=== PATIENT | female | born 1955 | race African-American/Black ===

== ENCOUNTER 2017-12-11 12:56 | Emergency (ER) | payer MEDICARE, MEDICAID ==
[~2017-12-11] VITALS: Ht 172.7 cm; Wt 155.0 kg
[2017-12-11 13:22] LABS: GLUCOSE,POINT OF CARE 161 MG/DL (70-110)
[2017-12-11] MEDS ORDERED: BUME1TAB17 PO (13:28)
[2017-12-11] MEDS ORDERED: INSLAN SQ ×2 (13:28)
[2017-12-11] MEDS ORDERED: CARV6 PO (13:28)
[2017-12-11] MEDS ORDERED: ATOR20TA86 PO (13:28)
[2017-12-11] MEDS ORDERED: VALS40TA4 PO (13:28)
[2017-12-11] MEDS ORDERED: AMLO-512 PO (13:28)
[2017-12-11] MEDS ORDERED: INSNOV SQ (13:28)
[2017-12-11] MEDS ORDERED: ASPI-556 PO (13:28)
[2017-12-11] MEDS ORDERED: HYDR25TA84 PO (13:28)
[2017-12-11 16:12] LABS: HEMATOCRIT 30.9 % (36-46); HEMOGLOBIN 9.6 g/dL (12.0-16.0); MEAN CORPUSCULAR HEMOGLOBIN 23.4 pg (26.0-34.0); MEAN CORPUSCULAR VOLUME 75 fL (80-100); PLATELET COUNT (AUTO) 296 K/uL (150-450); RED CELL DISTRIBUTION WIDTH 23.2 % (11.5-14.5)
[2017-12-11 16:25] LABS: INR 1.2 (0.9-1.1); PROTHROMBIN TIME 12.4 SEC (9.4-11.6)
[2017-12-11 16:30] LABS: ANION GAP 4 mmol/L (8-16); CALCIUM, TOTAL 8.1 mg/dL (8.8-10.5); CARBON DIOXIDE 35 mmol/L (22-29); CHLORIDE 101 mmol/L (98-107); CREATININE 1.02 mg/dL (0.60-1.30); GLOMERULAR FILTR. RATE CALC > 60 mL/min (>60); GLUCOSE,RANDOM 156 mg/dL (70-110); POTASSIUM 3.8 mmol/L (3.5-5.1); SODIUM SERUM 140 mmol/L (136-145); UREA NITROGEN, BLOOD 24 mg/dL (7-18)
[2017-12-11 16:54] LABS: ALANINE AMINOTRANSFERASE 47 U/L (12-78); ALBUMIN 2.2 g/dL (3.4-5.0); ALKALINE PHOSPHATASE 656 U/L (46-116); ASPARTATE AMINOTRANSFERASE 41 U/L (15-37); BILIRUBIN,TOTAL 0.8 mg/dL (0.1-1.0); CREATINE KINASE, TOTAL 106 U/L (26-192); TOTAL PROTEIN, SERUM 6.9 g/dL (6.4-8.2)
[2017-12-11 16:55] LABS: CREATINE KINASE MB < 0.5 ng/mL (0-5)
[2017-12-11 16:56] LABS: BAND NEUTROPHILS % (MANUAL) 5 % (1-5); LYMPHOCYTES % (MANUAL) 32 % (22-44); MONOCYTES % (MANUAL) 2 % (2-9); SEGMENTED NEUTROPHILS % 61 % (40-70)
[2017-12-11 16:58] LABS: B-TYPE NATRIURETIC PEPTIDE 631 pg/mL (0-100)
[2017-12-11 17:12] LABS: APPEARANCE,URINE CLEAR (CLEAR); GLUCOSE, URINE (UA) NEGATIVE (NEGATIVE); KETONES,URINE NEGATIVE (NEGATIVE); LEUKOCYTE ESTERASE ,URINE NEGATIVE (NEGATIVE); NITRATE,URINE NEGATIVE (NEGATIVE); OCCULT BLOOD,URINE NEGATIVE (NEGATIVE); PH,URINE 5.5 (5.0-8.0); PROTEIN,URINE SEE CONFIRM (NEGATIVE)
[2017-12-11 17:13] LABS: BILIRUBIN,URINE PRELIM. POSITIVE (NEGATIVE)
[2017-12-11 17:31] LABS: SULFOSALICYLIC ACID,URINE 2+ (Negative)
[2017-12-11 17:32] LABS: BACTERIA,URINE None Seen /HPF (None Seen); RBC,URINE None Seen /HPF (0-2); WBC,URINE None Seen /HPF (0-5); YEAST,URINE Few /HPF (None Seen)
[2017-12-11 18:15] VITALS: BP 145/53
[2017-12-11] MEDS ORDERED: FUROSEMIDE 40 MG/4 ML VIAL IVP ONE (18:45)
== END 2017-12-11 19:15 | disposition home or self-care (01) ==
LOC: EMS 12:58
DX: S81.801A Unspecified open wound, right lower leg, initial encounter (principal); I11.0 Hypertensive heart disease with heart failure; I50.9 Heart failure, unspecified; J44.9 Chronic obstructive pulmonary disease, unspecified; D50.9 Iron deficiency anemia, unspecified; E66.01 Morbid (severe) obesity due to excess calories; E11.9 Type 2 diabetes mellitus without complications; Z85.3 Personal history of malignant neoplasm of breast; Z88.2 Allergy status to sulfonamides; Z88.5 Allergy status to narcotic agent; Z88.8 Allergy status to other drugs, medicaments and biological substances; Z79.82 Long term (current) use of aspirin; Z79.4 Long term (current) use of insulin; Z68.43 Body mass index [BMI] 50.0-59.9, adult; X58.XXXA Exposure to other specified factors, initial encounter; Y93.89 Activity, other specified; Y92.89 Other specified places as the place of occurrence of the external cause; Y99.8 Other external cause status
CPT/HCPCS: 36415; 70450; 71045; 80053; 81001; 82550; 82553; 82962; 83880; 84484; 85025; 85610; 85730; 93005; 96374; 99285; J1940

== ENCOUNTER 2017-12-24 17:37 | Inpatient (IN) | payer MEDICARE, MEDICAID ==
[~2017-12-24] VITALS: Ht 160 cm; Wt 89.7 kg
[~2017-12-24 17:37] MED LIST: AMLO-512 PO; ASPI-556 PO; ATOR20TA86 PO; BUME1TAB17 PO; CARV6 PO; HYDR25TA84 PO; INSLAN SQ; INSNOV SQ; VALS40TA4 PO
[2017-12-24] MEDS ORDERED: ASPI-891 PO (17:53)
[2017-12-24 18:03] LABS: GLUCOSE,POINT OF CARE 153 MG/DL (70-110)
[2017-12-24] MEDS ORDERED: BUMETANIDE 0.25 MG/ML 4 ML VIAL IVP ONE (18:15)
[2017-12-24 18:43] LABS: BASOPHILS % (AUTO) 0.8 % (0.0-2.0); EOSINOPHILS % (AUTO) 4.5 % (1.0-6.0); HEMATOCRIT 32.6 % (36-46); LYMPHOCYTES # (AUTO) 1.1 K/uL (1.0-4.8); LYMPHOCYTES % (AUTO) 14.8 % (22.0-44.0); MEAN CORPUSCULAR HEMOGLOBIN 22.6 pg (26.0-34.0); MEAN CORPUSCULAR HGB CONC 30.5 G/dL (31.0-37.0); MEAN CORPUSCULAR VOLUME 74 fL (80-100); MONOCYTES # (AUTO) 0.7 K/uL (0.1-1.0); NEUTROPHILS % (AUTO) 69.9 % (40.0-70.0); PLATELET COUNT (AUTO) 327 K/uL (150-450); RED CELL DISTRIBUTION WIDTH 23.8 % (11.5-14.5)
[2017-12-24 18:57] LABS: ALBUMIN 2.3 g/dL (3.4-5.0); CALCIUM, TOTAL 8.6 mg/dL (8.8-10.5); CHLORIDE 99 mmol/L (98-107); CREATININE 0.95 mg/dL (0.60-1.30); GLOMERULAR FILTR. RATE CALC > 60 mL/min (>60); GLUCOSE,RANDOM 146 mg/dL (70-110); POTASSIUM 4.1 mmol/L (3.5-5.1); SODIUM SERUM 139 mmol/L (136-145); UREA NITROGEN, BLOOD 23 mg/dL (7-18)
[2017-12-24 19:00] LABS: B-TYPE NATRIURETIC PEPTIDE 914 pg/mL (0-100)
[2017-12-24 19:10] LABS: INR 1.2 (0.9-1.1); PROTHROMBIN TIME 12.5 SEC (9.4-11.6)
[2017-12-24 19:13] LABS: PLATELET MORPHOLOGY COMMENT LARGE PLTS PRESENT
[2017-12-24 19:17] LABS: ALANINE AMINOTRANSFERASE 40 U/L (12-78); ALKALINE PHOSPHATASE 653 U/L (46-116); ASPARTATE AMINOTRANSFERASE 31 U/L (15-37); BILIRUBIN,TOTAL 1.1 mg/dL (0.1-1.0); CREATINE KINASE, TOTAL 98 U/L (26-192); TOTAL PROTEIN, SERUM 7.2 g/dL (6.4-8.2)
[2017-12-24 19:18] LABS: ANION GAP -2 mmol/L (8-16); CARBON DIOXIDE 42 mmol/L (22-29)
[2017-12-24 19:19] LABS: CREATINE KINASE MB 0.6 ng/mL (0-5)
[2017-12-24] MEDS ORDERED: MethylPREDNISolone SOD SUCC 125 MG/2 ML VIAL IVP ONE (19:30)
[2017-12-24 19:34] LABS: ABG A-A DIFF O2 485.2 mmHg (10-20.0); ABG BASE EXCESS 14.7 mmol/L (-2.0-3.0); ABG CARBOXYHEMOGLOBIN 1.5 % (0.0-1.5); ABG HCO3 35.8 mmol/L (22.0-26.0); ABG METHEMOGLOBIN 0.2 % (0.0-1.5); ABG OXYGEN CONTENT 15.1 mL/dL (15.0-23.0); ABG OXYGEN SATURATION 99.1 % (95.0-98.0); ABG OXYHEMOGLOBIN 97.4 % (94.0-100.0); ABG PH 7.323 (7.35-7.450); ABG TOTAL HEMOGLOBIN 10.8 G/dL (12.0-18.0); PO2, ARTERIAL BG 147.5 mmHg (79.0-87.0); SOURCE, BLOOD GAS ARTERIAL; TEMPERATURE, FAHRENHEIT, BG 98.6 FAHREN (96.0-98.6)
[2017-12-24 19:35] LABS: ABG PCO2 80 mmHg (35-45); O2 DEVICE,BLOOD GAS NON REBREATHER (ROOM AIR); SITE, BLOOD GAS RT RADIAL
[2017-12-24] MEDS ORDERED: 0.9% SODIUM CHLORIDE 10 ML SYRINGE IVP PRN (19:45)
[2017-12-24] MEDS ORDERED: ONDANSETRON HCL 4 MG/2 ML VIAL IVP PRN ×2 (19:45→20:30)
[2017-12-24] MEDS ORDERED: ACETAMINOPHEN 325 MG TABLET PO PRN (19:45)
[2017-12-24] MEDS ORDERED: IPRATROPIUM BROMIDE 0.5 MG/2.5 ML NEB SOLUTION NEB SCH (20:00)
[2017-12-24] MEDS ORDERED: ALBUTEROL SULFATE 2.5 MG/0.5 ML NEB SOLUTION NEB SCH (20:00)
[2017-12-24] MEDS ORDERED: POTASSIUM CHLORIDE 20 MEQ ER TABLET PO PRN (20:30)
[2017-12-24] MEDS ORDERED: IPRATROPIUM BROMIDE 0.5 MG/2.5 ML NEB SOLUTION NEB PRN (20:30)
[2017-12-24] MEDS ORDERED: MAGNESIUM OXIDE 400 MG TABLET PO PRN (20:30)
[2017-12-24] MEDS ORDERED: BISACODYL 10 MG RECTAL RECTAL SUPPOSITORY PR PRN (20:30)
[2017-12-24] MEDS ORDERED: MAGNESIUM SULFATE 4 GM/WATER 100 ML IV PRN (20:30)
[2017-12-24] MEDS ORDERED: POTASSIUM CHL 10 MEQ/WATER 50 ML IV PRN (20:30)
[2017-12-24] MEDS ORDERED: MAGNESIUM SULFATE 2 GM in DEXTROSE 5%-WATER 50 ML IV PRN (20:30)
[2017-12-24] MEDS ORDERED: ALBUTEROL SULFATE 2.5 MG/0.5 ML NEB SOLUTION NEB PRN (20:30)
[2017-12-24] MEDS ORDERED: DEXTROSE 50%-WATER 25 GM/50 ML SYRINGE IVP PRN (20:30)
[2017-12-24] MEDS ORDERED: 0.9% SODIUM CHLORIDE 5 ML NEB SOLUTION NEB ONE (20:55)
[2017-12-24 21:23] LABS: GLUCOSE,POINT OF CARE 135 MG/DL (70-110)
[2017-12-24 21:35] LABS: ABG A-A DIFF O2 185.7 mmHg (10-20.0); ABG BASE EXCESS 16.1 mmol/L (-2.0-3.0); ABG CARBOXYHEMOGLOBIN 1.9 % (0.0-1.5); ABG HCO3 37.3 mmol/L (22.0-26.0); ABG METHEMOGLOBIN 0.3 % (0.0-1.5); ABG OXYGEN CONTENT 14.5 mL/dL (15.0-23.0); ABG OXYGEN SATURATION 96.7 % (95.0-98.0); ABG OXYHEMOGLOBIN 94.6 % (94.0-100.0); ABG PH 7.375 (7.35-7.450); ABG TOTAL HEMOGLOBIN 10.8 G/dL (12.0-18.0); PO2, ARTERIAL BG 89.5 mmHg (79.0-87.0); SOURCE, BLOOD GAS ARTERIAL; TEMPERATURE, FAHRENHEIT, BG 98.6 FAHREN (96.0-98.6)
[2017-12-24 21:36] LABS: ABG PCO2 72 mmHg (35-45); O2 DEVICE,BLOOD GAS BIPAP (ROOM AIR); SITE, BLOOD GAS LFT RADIAL
[2017-12-24 22:19] VITALS: BP 192/94
[2017-12-24] MEDS: HydrALAZINE HCL 25 MG TABLET PO SCH (22:19)
[2017-12-24] MEDS: CARVEDILOL 6.25 MG TABLET PO SCH (22:19)
[2017-12-24] MEDS: HEPARIN SODIUM,PORCINE 5,000 UNITS/ML VIAL SQ SCH (22:20)
[2017-12-24] MEDS: INSULIN DETEMIR 100 UNITS/ML SQ SCH (22:24)
[2017-12-24] MEDS: BUMETANIDE 1 MG TABLET PO SCH (22:31)
[2017-12-25 00:06] VITALS: BP 161/78
[2017-12-25 04:25] VITALS: BP 141/83
[2017-12-25 06:44] LABS: BASOPHILS % (AUTO) 0.2 % (0.0-2.0); EOSINOPHILS % (AUTO) 0.1 % (1.0-6.0); HEMATOCRIT 31.4 % (36-46); HEMOGLOBIN 9.8 g/dL (12.0-16.0); LYMPHOCYTES # (AUTO) 0.4 K/uL (1.0-4.8); LYMPHOCYTES % (AUTO) 5.7 % (22.0-44.0); MEAN CORPUSCULAR VOLUME 74 fL (80-100); MONOCYTES # (AUTO) 0.1 K/uL (0.1-1.0); MONOCYTES % (AUTO) 0.7 % (2.0-9.0); NEUTROPHILS # (AUTO) 6.6 K/uL (1.8-7.7); PLATELET COUNT (AUTO) 322 K/uL (150-450); RED BLOOD CELL COUNT(AUTO) 4.25 MIL/uL (4.00-5.20); RED CELL DISTRIBUTION WIDTH 23.8 % (11.5-14.5)
[2017-12-25 07:26] LABS: HEMOGLOBIN A1C 9.5 % (4.5-6.2); NEUTROPHILS % (AUTO) 93.3 % (40.0-70.0)
[2017-12-25 07:30] LABS: ALANINE AMINOTRANSFERASE 33 U/L (12-78); ALKALINE PHOSPHATASE 588 U/L (46-116); ANION GAP 4 mmol/L (8-16); ASPARTATE AMINOTRANSFERASE 27 U/L (15-37); CALCIUM, TOTAL 8.5 mg/dL (8.8-10.5); CARBON DIOXIDE 39 mmol/L (22-29); CHLORIDE 99 mmol/L (98-107); CREATININE 0.82 mg/dL (0.60-1.30); GLOMERULAR FILTR. RATE CALC > 60 mL/min (>60); GLUCOSE,RANDOM 155 mg/dL (70-110); PHOSPHORUS 4.8 mg/dL (2.5-4.9); POTASSIUM 4.2 mmol/L (3.5-5.1); SODIUM SERUM 142 mmol/L (136-145); TOTAL PROTEIN, SERUM 6.6 g/dL (6.4-8.2); UREA NITROGEN, BLOOD 22 mg/dL (7-18)
[2017-12-25] MEDS: HydrALAZINE HCL 25 MG TABLET PO SCH ×2 (09:28→20:59)
[2017-12-25] MEDS: CARVEDILOL 6.25 MG TABLET PO SCH ×2 (09:28→20:59)
[2017-12-25] MEDS: VALSARTAN 40 MG TABLET PO SCH (09:28)
[2017-12-25] MEDS: BUMETANIDE 1 MG TABLET PO SCH ×2 (09:28→20:59)
[2017-12-25] MEDS: ATORVASTATIN CALCIUM 20 MG TABLET PO SCH (09:29)
[2017-12-25] MEDS: ASPIRIN 325 MG EC TABLET PO SCH (09:29)
[2017-12-25] MEDS: PANTOPRAZOLE SODIUM 40 MG DR TABLET PO SCH (09:29)
[2017-12-25] MEDS: HEPARIN SODIUM,PORCINE 5,000 UNITS/ML VIAL SQ SCH ×2 (09:29→20:59)
[2017-12-25] MEDS: AmLODIPine BESYLATE 10 MG TABLET PO SCH (09:31)
[2017-12-25] MEDS: INSULIN DETEMIR 100 UNITS/ML SQ SCH ×2 (09:31→21:02)
[2017-12-25] MEDS: INSULIN ASPART 100 UNITS/ML SQ PRN ×3 (12:05→21:03)
[2017-12-25 14:48] LABS: GLUCOMETER DEV NAME(LOC) 5S 1L; GLUCOSE,POINT OF CARE 196 MG/DL (70-110)
[2017-12-25 14:48] LABS: GLUCOMETER DEV NAME(LOC) 5S 1L; GLUCOSE,POINT OF CARE 209 MG/DL (70-110)
[2017-12-25 15:13] VITALS: BP 124/68
[2017-12-25 19:51] VITALS: BP 138/92
[2017-12-26] VITALS (7 sets, daily range): BP systolic 125–158; BP diastolic 72–88
[2017-12-26] MEDS: INSULIN ASPART 100 UNITS/ML SQ PRN ×4 (06:00→21:28)
[2017-12-26 06:56] LABS: BASOPHILS % (AUTO) 0.8 % (0.0-2.0); EOSINOPHILS % (AUTO) 1.9 % (1.0-6.0); HEMOGLOBIN 9.5 g/dL (12.0-16.0); LYMPHOCYTES # (AUTO) 1.1 K/uL (1.0-4.8); LYMPHOCYTES % (AUTO) 14.7 % (22.0-44.0); MEAN CORPUSCULAR HEMOGLOBIN 22.7 pg (26.0-34.0); MEAN CORPUSCULAR HGB CONC 30.8 G/dL (31.0-37.0); MEAN CORPUSCULAR VOLUME 74 fL (80-100); MONOCYTES # (AUTO) 0.7 K/uL (0.1-1.0); MONOCYTES % (AUTO) 10.3 % (2.0-9.0); NEUTROPHILS # (AUTO) 5.2 K/uL (1.8-7.7); NEUTROPHILS % (AUTO) 72.3 % (40.0-70.0); PLATELET COUNT (AUTO) 320 K/uL (150-450); RED CELL DISTRIBUTION WIDTH 24.1 % (11.5-14.5)
[2017-12-26 07:07] LABS: ANION GAP 3 mmol/L (8-16); CALCIUM, TOTAL 8.7 mg/dL (8.8-10.5); CHLORIDE 101 mmol/L (98-107); CREATININE 1.09 mg/dL (0.60-1.30); GLOMERULAR FILTR. RATE CALC > 60 mL/min (>60); GLUCOSE,RANDOM 164 mg/dL (70-110); SODIUM SERUM 147 mmol/L (136-145); UREA NITROGEN, BLOOD 30 mg/dL (7-18)
[2017-12-26 07:24] LABS: CARBON DIOXIDE 43 mmol/L (22-29)
[2017-12-26] MEDS: HydrALAZINE HCL 25 MG TABLET PO SCH ×2 (07:58→20:22)
[2017-12-26] MEDS: BUMETANIDE 1 MG TABLET PO SCH ×2 (07:58→20:22)
[2017-12-26] MEDS: CARVEDILOL 6.25 MG TABLET PO SCH ×2 (07:58→20:23)
[2017-12-26] MEDS: HEPARIN SODIUM,PORCINE 5,000 UNITS/ML VIAL SQ SCH ×2 (07:59→20:23)
[2017-12-26] MEDS: ATORVASTATIN CALCIUM 20 MG TABLET PO SCH (07:59)
[2017-12-26] MEDS: PANTOPRAZOLE SODIUM 40 MG DR TABLET PO SCH (07:59)
[2017-12-26] MEDS: VALSARTAN 40 MG TABLET PO SCH (07:59)
[2017-12-26] MEDS: ASPIRIN 325 MG EC TABLET PO SCH (07:59)
[2017-12-26] MEDS: INSULIN DETEMIR 100 UNITS/ML SQ SCH ×2 (08:05→21:29)
[2017-12-26] MEDS: AmLODIPine BESYLATE 10 MG TABLET PO SCH (12:13)
[2017-12-26 20:00] LABS: LACTATE DEHYDROGENASE 434 U/L (81-234)
[2017-12-26] MEDS: MAGNESIUM HYDROXIDE SUSPENSION 30 ML UDCUP PO PRN (20:22)
[2017-12-26] MEDS: OXYGEN THERAPY IH SCH (20:23)
[2017-12-26] MEDS: ZOLPIDEM TARTRATE 5 MG TABLET PO PRN (21:27)
[2017-12-26] MEDS: LORazepam 1 MG TABLET PO PRN (22:14)
[2017-12-27 04:30] VITALS: BP 136/74
[2017-12-27] MEDS: ACETAMINOPHEN 325 MG TABLET PO PRN (04:50)
[2017-12-27] MEDS: LORazepam 1 MG TABLET PO PRN (04:50)
[2017-12-27] MEDS: INSULIN ASPART 100 UNITS/ML SQ PRN ×3 (06:02→21:02)
[2017-12-27 07:14] VITALS: BP 147/73
[2017-12-27 08:08] LABS: GLUCOMETER DEV NAME(LOC) 5S 1L; GLUCOSE,POINT OF CARE 192 MG/DL (70-110)
[2017-12-27 08:08] LABS: GLUCOMETER DEV NAME(LOC) 5S 1L; GLUCOSE,POINT OF CARE 232 MG/DL (70-110)
[2017-12-27 08:09] LABS: GLUCOMETER DEV NAME(LOC) 5S 1L; GLUCOSE,POINT OF CARE 203 MG/DL (70-110)
[2017-12-27 08:09] LABS: GLUCOMETER DEV NAME(LOC) 5S 1L; GLUCOSE,POINT OF CARE 176 MG/DL (70-110)
[2017-12-27 08:09] LABS: GLUCOMETER DEV NAME(LOC) 5S 1L; GLUCOSE,POINT OF CARE 166 MG/DL (70-110)
[2017-12-27] MEDS: PANTOPRAZOLE SODIUM 40 MG DR TABLET PO SCH (09:00)
[2017-12-27] MEDS: ATORVASTATIN CALCIUM 20 MG TABLET PO SCH (09:00)
[2017-12-27] MEDS: AmLODIPine BESYLATE 10 MG TABLET PO SCH (09:00)
[2017-12-27] MEDS: VALSARTAN 40 MG TABLET PO SCH (09:00)
[2017-12-27] MEDS: HydrALAZINE HCL 25 MG TABLET PO SCH ×2 (09:00→20:54)
[2017-12-27] MEDS: CARVEDILOL 6.25 MG TABLET PO SCH ×2 (09:00→20:54)
[2017-12-27] MEDS: BUMETANIDE 1 MG TABLET PO SCH (09:00)
[2017-12-27] MEDS: ASPIRIN 325 MG EC TABLET PO SCH (09:00)
[2017-12-27 10:06] LABS: ABG A-A DIFF O2 165.3 mmHg (10-20.0); ABG BASE EXCESS 17.5 mmol/L (-2.0-3.0); ABG CARBOXYHEMOGLOBIN 1.5 % (0.0-1.5); ABG HCO3 38.3 mmol/L (22.0-26.0); ABG METHEMOGLOBIN 0.3 % (0.0-1.5); ABG OXYGEN CONTENT 12.9 mL/dL (15.0-23.0); ABG OXYGEN SATURATION 90.8 % (95.0-98.0); ABG OXYHEMOGLOBIN 89.2 % (94.0-100.0); ABG PH 7.347 (7.35-7.450); ABG TOTAL HEMOGLOBIN 10.2 G/dL (12.0-18.0); SOURCE, BLOOD GAS ARTERIAL; TEMPERATURE, FAHRENHEIT, BG 97.5 FAHREN (96.0-98.6)
[2017-12-27 10:07] LABS: ABG PCO2 80 mmHg (35-45); O2 DEVICE,BLOOD GAS BIPAP (ROOM AIR); SITE, BLOOD GAS RT RADIAL
[2017-12-27 10:45] VITALS: BP 154/83
[2017-12-27 12:00] VITALS: BP 161/84
[2017-12-27] MEDS: INSULIN DETEMIR 100 UNITS/ML SQ SCH ×2 (12:15→21:05)
[2017-12-27] MEDS: HEPARIN SODIUM,PORCINE 5,000 UNITS/ML VIAL SQ SCH ×2 (12:20→20:54)
[2017-12-27] MEDS: HydrALAZINE HCL 20 MG/ML VIAL IVP PRN ×3 (13:39→20:06)
[2017-12-27] MEDS: BUMETANIDE 0.25 MG/ML 4 ML VIAL IVP SCH ×2 (14:31→20:54)
[2017-12-27] MEDS: LABETALOL HCL 5 MG/ML 20 ML VIAL IVP PRN ×2 (15:07→17:30)
[2017-12-27 16:00] VITALS: BP 161/93
[2017-12-27 17:47] LABS: GLUCOSE,POINT OF CARE 160 MG/DL (70-110)
[2017-12-27 20:00] VITALS: BP 165/88
[2017-12-27] MEDS: OXYGEN THERAPY IH SCH ×2 (20:05→20:06)
[2017-12-27 20:07] LABS: GLUCOMETER DEV NAME(LOC) 5S 2N; GLUCOSE,POINT OF CARE 146 MG/DL (70-110)
[2017-12-27 20:08] LABS: GLUCOMETER DEV NAME(LOC) 5S 2N; GLUCOSE,POINT OF CARE 171 MG/DL (70-110)
[2017-12-27 20:08] LABS: GLUCOMETER DEV NAME(LOC) 5S 2N; GLUCOSE,POINT OF CARE 148 MG/DL (70-110)
[2017-12-27 20:08] LABS: GLUCOMETER DEV NAME(LOC) 5S 2N; GLUCOSE,POINT OF CARE 210 MG/DL (70-110)
[2017-12-27 22:41] LABS: APPEARANCE,URINE CLOUDY (CLEAR); BILIRUBIN,URINE NEGATIVE (NEGATIVE); GLUCOSE, URINE (UA) NEGATIVE (NEGATIVE); KETONES,URINE NEGATIVE (NEGATIVE); LEUKOCYTE ESTERASE ,URINE SMALL (NEGATIVE); NITRATE,URINE NEGATIVE (NEGATIVE); OCCULT BLOOD,URINE LARGE (NEGATIVE); PH,URINE 7.5 (5.0-8.0); PROTEIN,URINE SEE CONFIRM (NEGATIVE)
[2017-12-27 22:58] LABS: SULFOSALICYLIC ACID,URINE 3+ (Negative)
[2017-12-27 23:00] LABS: BACTERIA,URINE Many /HPF (None Seen); RBC,URINE >100 /HPF (0-2); WBC,URINE 26-50 /HPF (0-5)
[2017-12-27 23:01] LABS: SQUAMOUS EPITHELIAL CELL,UR Few /LPF (None Seen)
[2017-12-28] VITALS: BP 166/89
[2017-12-28 04:00] VITALS: BP 154/77
[2017-12-28] MEDS: HydrALAZINE HCL 20 MG/ML VIAL IVP PRN (04:41)
[2017-12-28 04:58] LABS: BASOPHILS % (AUTO) 0.6 % (0.0-2.0); EOSINOPHILS % (AUTO) 4.3 % (1.0-6.0); HEMOGLOBIN 9.6 g/dL (12.0-16.0); LYMPHOCYTES # (AUTO) 0.8 K/uL (1.0-4.8); LYMPHOCYTES % (AUTO) 13.4 % (22.0-44.0); MEAN CORPUSCULAR HEMOGLOBIN 22.8 pg (26.0-34.0); MEAN CORPUSCULAR HGB CONC 31.1 G/dL (31.0-37.0); MEAN CORPUSCULAR VOLUME 73 fL (80-100); MONOCYTES # (AUTO) 0.5 K/uL (0.1-1.0); MONOCYTES % (AUTO) 9.4 % (2.0-9.0); NEUTROPHILS % (AUTO) 72.3 % (40.0-70.0); PLATELET COUNT (AUTO) 291 K/uL (150-450); RED BLOOD CELL COUNT(AUTO) 4.23 MIL/uL (4.00-5.20); RED CELL DISTRIBUTION WIDTH 24.3 % (11.5-14.5)
[2017-12-28 05:05] LABS: ANION GAP -2 mmol/L (8-16); CALCIUM, TOTAL 8.6 mg/dL (8.8-10.5); CHLORIDE 102 mmol/L (98-107); CREATININE 0.78 mg/dL (0.60-1.30); GLOMERULAR FILTR. RATE CALC > 60 mL/min (>60); GLUCOSE,RANDOM 137 mg/dL (70-110); PHOSPHORUS 3.5 mg/dL (2.5-4.9); SODIUM SERUM 144 mmol/L (136-145); UREA NITROGEN, BLOOD 21 mg/dL (7-18)
[2017-12-28 05:15] LABS: CARBON DIOXIDE 44 mmol/L (22-29)
[2017-12-28 07:38] LABS: GLUCOSE,POINT OF CARE 117 MG/DL (70-110)
[2017-12-28 07:38] LABS: GLUCOSE,POINT OF CARE 161 MG/DL (70-110)
[2017-12-28 08:00] VITALS: BP 157/76
[2017-12-28 08:47] LABS: ABG CARBOXYHEMOGLOBIN 1.7 % (0.0-1.5); SOURCE, BLOOD GAS ARTERIAL
[2017-12-28] MEDS: OXYGEN THERAPY IH SCH ×2 (08:54→21:21)
[2017-12-28] MEDS: CARVEDILOL 6.25 MG TABLET PO SCH ×2 (08:55→21:22)
[2017-12-28] MEDS: ASPIRIN 325 MG EC TABLET PO SCH (08:55)
[2017-12-28] MEDS: HEPARIN SODIUM,PORCINE 5,000 UNITS/ML VIAL SQ SCH ×2 (08:56→21:21)
[2017-12-28] MEDS: AmLODIPine BESYLATE 10 MG TABLET PO SCH (08:56)
[2017-12-28] MEDS: HydrALAZINE HCL 25 MG TABLET PO SCH ×2 (08:56→21:21)
[2017-12-28] MEDS: VALSARTAN 40 MG TABLET PO SCH (08:56)
[2017-12-28] MEDS: ATORVASTATIN CALCIUM 20 MG TABLET PO SCH (08:56)
[2017-12-28] MEDS: BUMETANIDE 0.25 MG/ML 4 ML VIAL IVP SCH ×2 (08:57→21:21)
[2017-12-28] MEDS: PANTOPRAZOLE SODIUM 40 MG DR TABLET PO SCH (08:57)
[2017-12-28] MEDS: INSULIN DETEMIR 100 UNITS/ML SQ SCH ×2 (09:00→21:23)
[2017-12-28 10:12] LABS: GLUCOSE,POINT OF CARE 155 MG/DL (70-110)
[2017-12-28 10:49] LABS: ABG A-A DIFF O2 116.6 mmHg (10-20.0); ABG BASE EXCESS 17.4 mmol/L (-2.0-3.0); ABG METHEMOGLOBIN 0.2 % (0.0-1.5); ABG OXYGEN CONTENT 13.7 mL/dL (15.0-23.0); ABG OXYGEN SATURATION 94.9 % (95.0-98.0); ABG OXYHEMOGLOBIN 93.1 % (94.0-100.0); ABG PCO2 59 mmHg (35-45); ABG PH 7.465 (7.35-7.450); ABG TOTAL HEMOGLOBIN 10.4 G/dL (12.0-18.0); PO2, ARTERIAL BG 72.4 mmHg (79.0-87.0); TEMPERATURE, FAHRENHEIT, BG 98.2 FAHREN (96.0-98.6)
[2017-12-28 10:50] LABS: O2 DEVICE,BLOOD GAS CANNULA (ROOM AIR); SITE, BLOOD GAS LFT RADIAL
[2017-12-28 12:00] VITALS: BP 155/79
[2017-12-28] MEDS: INSULIN ASPART 100 UNITS/ML SQ PRN ×2 (12:36→17:41)
[2017-12-28 12:51] LABS: AMYLASE 24 U/L (25-115)
[2017-12-28 16:00] VITALS: BP 146/76
[2017-12-28 20:00] VITALS: BP 152/74
[2017-12-29] VITALS (7 sets, daily range): BP systolic 136–175; BP diastolic 65–95
[2017-12-29 00:38] LABS: GLUCOSE,POINT OF CARE 191 MG/DL (70-110)
[2017-12-29 06:18] LABS: GLUCOMETER DEV NAME(LOC) 5S 1L; GLUCOSE,POINT OF CARE 168 MG/DL (70-110)
[2017-12-29 06:38] LABS: BASOPHILS % (AUTO) 0.4 % (0.0-2.0); EOSINOPHILS % (AUTO) 5.4 % (1.0-6.0); HEMATOCRIT 29.2 % (36-46); HEMOGLOBIN 9.2 g/dL (12.0-16.0); LYMPHOCYTES % (AUTO) 15.9 % (22.0-44.0); MEAN CORPUSCULAR HEMOGLOBIN 23.1 pg (26.0-34.0); MEAN CORPUSCULAR HGB CONC 31.6 G/dL (31.0-37.0); MEAN CORPUSCULAR VOLUME 73 fL (80-100); MONOCYTES # (AUTO) 0.5 K/uL (0.1-1.0); MONOCYTES % (AUTO) 8.4 % (2.0-9.0); NEUTROPHILS # (AUTO) 4.3 K/uL (1.8-7.7); NEUTROPHILS % (AUTO) 69.9 % (40.0-70.0); PLATELET COUNT (AUTO) 275 K/uL (150-450); RED CELL DISTRIBUTION WIDTH 23.7 % (11.5-14.5)
[2017-12-29 07:27] LABS: ALANINE AMINOTRANSFERASE 25 U/L (12-78); ALKALINE PHOSPHATASE 448 U/L (46-116); ANION GAP 2 mmol/L (8-16); ASPARTATE AMINOTRANSFERASE 20 U/L (15-37); BILIRUBIN,TOTAL 0.7 mg/dL (0.1-1.0); CALCIUM, TOTAL 8.4 mg/dL (8.8-10.5); CARBON DIOXIDE 40 mmol/L (22-29); CHLORIDE 100 mmol/L (98-107); CREATINE KINASE, TOTAL 48 U/L (26-192); CREATININE 0.79 mg/dL (0.60-1.30); GLOMERULAR FILTR. RATE CALC > 60 mL/min (>60); GLUCOSE,RANDOM 175 mg/dL (70-110); POTASSIUM 3.9 mmol/L (3.5-5.1); SODIUM SERUM 142 mmol/L (136-145); TOTAL PROTEIN, SERUM 6.5 g/dL (6.4-8.2); UREA NITROGEN, BLOOD 18 mg/dL (7-18)
[2017-12-29] MEDS: INSULIN ASPART 100 UNITS/ML SQ PRN ×3 (07:58→17:16)
[2017-12-29 08:27] LABS: GLUCOSE,POINT OF CARE 151 MG/DL (70-110)
[2017-12-29 08:27] LABS: GLUCOSE,POINT OF CARE 209 MG/DL (70-110)
[2017-12-29] MEDS: AmLODIPine BESYLATE 10 MG TABLET PO SCH (08:46)
[2017-12-29] MEDS: VALSARTAN 40 MG TABLET PO SCH (08:46)
[2017-12-29] MEDS: CARVEDILOL 6.25 MG TABLET PO SCH ×2 (08:46→20:57)
[2017-12-29] MEDS: HEPARIN SODIUM,PORCINE 5,000 UNITS/ML VIAL SQ SCH ×2 (08:47→20:57)
[2017-12-29] MEDS: ATORVASTATIN CALCIUM 20 MG TABLET PO SCH (08:47)
[2017-12-29] MEDS: ASPIRIN 325 MG EC TABLET PO SCH (08:47)
[2017-12-29] MEDS: BUMETANIDE 0.25 MG/ML 4 ML VIAL IVP SCH ×2 (08:47→20:57)
[2017-12-29] MEDS: HydrALAZINE HCL 25 MG TABLET PO SCH ×2 (08:47→20:57)
[2017-12-29] MEDS: PANTOPRAZOLE SODIUM 40 MG DR TABLET PO SCH (08:47)
[2017-12-29] MEDS: INSULIN DETEMIR 100 UNITS/ML SQ SCH ×2 (08:49→21:06)
[2017-12-29] MEDS: OXYGEN THERAPY IH SCH ×2 (08:50→21:16)
[2017-12-29 10:53] LABS: GLUCOSE,POINT OF CARE 169 MG/DL (70-110)
[2017-12-29] MEDS: ACETAMINOPHEN 325 MG TABLET PO PRN (14:12)
[2017-12-29 17:57] LABS: GLUCOSE,POINT OF CARE 168 MG/DL (70-110)
[2017-12-29] MEDS: ZOLPIDEM TARTRATE 5 MG TABLET PO PRN (20:57)
[2017-12-29 23:18] LABS: GLUCOSE,POINT OF CARE 138 MG/DL (70-110)
[2017-12-30 04:47] VITALS: BP 158/87
[2017-12-30 06:03] LABS: BASOPHILS % (AUTO) 0.4 % (0.0-2.0); EOSINOPHILS % (AUTO) 6.6 % (1.0-6.0); HEMATOCRIT 31.6 % (36-46); HEMOGLOBIN 9.8 g/dL (12.0-16.0); LYMPHOCYTES # (AUTO) 0.9 K/uL (1.0-4.8); LYMPHOCYTES % (AUTO) 12.7 % (22.0-44.0); MEAN CORPUSCULAR HEMOGLOBIN 22.8 pg (26.0-34.0); MEAN CORPUSCULAR HGB CONC 31.1 G/dL (31.0-37.0); MEAN CORPUSCULAR VOLUME 73 fL (80-100); MONOCYTES # (AUTO) 0.5 K/uL (0.1-1.0); MONOCYTES % (AUTO) 7.5 % (2.0-9.0); NEUTROPHILS # (AUTO) 5.1 K/uL (1.8-7.7); NEUTROPHILS % (AUTO) 72.8 % (40.0-70.0); PLATELET COUNT (AUTO) 287 K/uL (150-450); RED CELL DISTRIBUTION WIDTH 24.3 % (11.5-14.5)
[2017-12-30 06:22] LABS: ANION GAP 2 mmol/L (8-16); CALCIUM, TOTAL 8.7 mg/dL (8.8-10.5); CARBON DIOXIDE 40 mmol/L (22-29); CHLORIDE 100 mmol/L (98-107); GLOMERULAR FILTR. RATE CALC > 60 mL/min (>60); GLUCOSE,RANDOM 130 mg/dL (70-110); POTASSIUM 3.7 mmol/L (3.5-5.1); SODIUM SERUM 142 mmol/L (136-145); UREA NITROGEN, BLOOD 15 mg/dL (7-18)
[2017-12-30] MEDS: MAGNESIUM HYDROXIDE SUSPENSION 30 ML UDCUP PO PRN (06:38)
[2017-12-30 06:59] LABS: GLUCOSE,POINT OF CARE 156 MG/DL (70-110)
[2017-12-30 08:12] VITALS: BP 154/76
[2017-12-30] MEDS: INSULIN DETEMIR 100 UNITS/ML SQ SCH ×2 (09:00→21:56)
[2017-12-30 10:33] LABS: ABG A-A DIFF O2 264.5 mmHg (10-20.0); ABG CARBOXYHEMOGLOBIN 1.9 % (0.0-1.5); ABG HCO3 41.5 mmol/L (22.0-26.0); ABG METHEMOGLOBIN 0.3 % (0.0-1.5); ABG OXYGEN CONTENT 13.4 mL/dL (15.0-23.0); ABG OXYGEN SATURATION 92.6 % (95.0-98.0); ABG OXYHEMOGLOBIN 90.6 % (94.0-100.0); ABG PH 7.359 (7.35-7.450); ABG TOTAL HEMOGLOBIN 10.5 G/dL (12.0-18.0); PO2, ARTERIAL BG 70.9 mmHg (79.0-87.0); SOURCE, BLOOD GAS ARTERIAL; TEMPERATURE, FAHRENHEIT, BG 98.4 FAHREN (96.0-98.6)
[2017-12-30 10:34] LABS: ABG PCO2 84 mmHg (35-45); O2 DEVICE,BLOOD GAS SIMPLE MASK (ROOM AIR); SITE, BLOOD GAS LFT RADIAL
[2017-12-30] MEDS: OXYGEN THERAPY IH SCH ×2 (11:18→21:04)
[2017-12-30 11:19] VITALS: BP 177/92
[2017-12-30] MEDS: BUMETANIDE 0.25 MG/ML 4 ML VIAL IVP SCH ×2 (11:19→21:52)
[2017-12-30] MEDS: HEPARIN SODIUM,PORCINE 5,000 UNITS/ML VIAL SQ SCH ×2 (11:20→21:04)
[2017-12-30] MEDS: MethylPREDNISolone SOD SUCC 125 MG/2 ML VIAL IVP SCH ×2 (11:23→17:42)
[2017-12-30] MEDS: AmLODIPine BESYLATE 10 MG TABLET PO SCH (12:19)
[2017-12-30] MEDS: PANTOPRAZOLE SODIUM 40 MG DR TABLET PO SCH (12:19)
[2017-12-30] MEDS: CARVEDILOL 6.25 MG TABLET PO SCH ×2 (12:19→21:04)
[2017-12-30] MEDS: ATORVASTATIN CALCIUM 20 MG TABLET PO SCH (12:20)
[2017-12-30] MEDS: ASPIRIN 325 MG EC TABLET PO SCH (12:20)
[2017-12-30] MEDS: VALSARTAN 40 MG TABLET PO SCH (12:20)
[2017-12-30] MEDS: HydrALAZINE HCL 25 MG TABLET PO SCH ×2 (12:20→21:04)
[2017-12-30 15:17] VITALS: BP 148/82
[2017-12-30] MEDS: INSULIN ASPART 100 UNITS/ML SQ PRN ×2 (17:32→21:56)
[2017-12-30] MEDS: IPRATROPIUM BROMIDE 0.5 MG/2.5 ML NEB SOLUTION NEB SCH ×2 (19:43→23:50)
[2017-12-30] MEDS: ALBUTEROL SULFATE 2.5 MG/0.5 ML NEB SOLUTION NEB SCH ×2 (19:43→23:49)
[2017-12-30 20:19] VITALS: BP 152/88
[2017-12-31] VITALS (8 sets, daily range): BP systolic 141–169; BP diastolic 72–95
[2017-12-31] MEDS: MethylPREDNISolone SOD SUCC 125 MG/2 ML VIAL IVP SCH ×4 (00:05→18:17)
[2017-12-31] MEDS: IPRATROPIUM BROMIDE 0.5 MG/2.5 ML NEB SOLUTION NEB SCH ×6 (03:08→22:52)
[2017-12-31] MEDS: ALBUTEROL SULFATE 2.5 MG/0.5 ML NEB SOLUTION NEB SCH ×6 (03:08→22:52)
[2017-12-31] MEDS: INSULIN ASPART 100 UNITS/ML SQ PRN ×4 (06:25→21:51)
[2017-12-31] MEDS: OXYGEN THERAPY IH SCH ×2 (08:01→21:44)
[2017-12-31 09:03] LABS: GLUCOMETER DEV NAME(LOC) PVLAB129; GLUCOSE,POINT OF CARE 304 MG/DL (70-110)
[2017-12-31 09:03] LABS: GLUCOMETER DEV NAME(LOC) PVLAB129; GLUCOSE,POINT OF CARE 331 MG/DL (70-110)
[2017-12-31 09:03] LABS: GLUCOMETER DEV NAME(LOC) PVLAB129; GLUCOSE,POINT OF CARE 186 MG/DL (70-110)
[2017-12-31] MEDS: PANTOPRAZOLE SODIUM 40 MG DR TABLET PO SCH (10:33)
[2017-12-31] MEDS: HydrALAZINE HCL 25 MG TABLET PO SCH ×2 (10:33→21:44)
[2017-12-31] MEDS: CARVEDILOL 6.25 MG TABLET PO SCH ×2 (10:33→21:44)
[2017-12-31] MEDS: VALSARTAN 40 MG TABLET PO SCH (10:33)
[2017-12-31] MEDS: ASPIRIN 325 MG EC TABLET PO SCH (10:33)
[2017-12-31] MEDS: AmLODIPine BESYLATE 10 MG TABLET PO SCH (10:33)
[2017-12-31] MEDS: ATORVASTATIN CALCIUM 20 MG TABLET PO SCH (10:34)
[2017-12-31] MEDS: HEPARIN SODIUM,PORCINE 5,000 UNITS/ML VIAL SQ SCH ×2 (10:34→21:45)
[2017-12-31] MEDS: BUMETANIDE 0.25 MG/ML 4 ML VIAL IVP SCH ×2 (10:36→22:40)
[2017-12-31] MEDS: INSULIN DETEMIR 100 UNITS/ML SQ SCH ×2 (11:03→21:50)
[2017-12-31 14:10] LABS: ABG A-A DIFF O2 108.2 mmHg (10-20.0); ABG BASE EXCESS 16.2 mmol/L (-2.0-3.0); ABG CARBOXYHEMOGLOBIN 1.5 % (0.0-1.5); ABG HCO3 37.1 mmol/L (22.0-26.0); ABG METHEMOGLOBIN 0.4 % (0.0-1.5); ABG OXYGEN SATURATION 89.4 % (95.0-98.0); ABG OXYHEMOGLOBIN 87.7 % (94.0-100.0); ABG PH 7.351 (7.35-7.450); ABG TOTAL HEMOGLOBIN 10.5 G/dL (12.0-18.0); PO2, ARTERIAL BG 59.7 mmHg (79.0-87.0); SOURCE, BLOOD GAS ARTERIAL; TEMPERATURE, FAHRENHEIT, BG 97.6 FAHREN (96.0-98.6)
[2017-12-31 14:13] LABS: ABG PCO2 77 mmHg (35-45); O2 DEVICE,BLOOD GAS CANNULA (ROOM AIR); SITE, BLOOD GAS RT RADIAL
[2018-01-01] VITALS (8 sets, daily range): BP systolic 154–173; BP diastolic 70–94
[2018-01-01] MEDS: LABETALOL HCL 5 MG/ML 20 ML VIAL IVP PRN (00:35)
[2018-01-01] MEDS: IPRATROPIUM BROMIDE 0.5 MG/2.5 ML NEB SOLUTION NEB SCH ×6 (02:49→23:00)
[2018-01-01] MEDS: ALBUTEROL SULFATE 2.5 MG/0.5 ML NEB SOLUTION NEB SCH ×6 (02:49→23:00)
[2018-01-01] MEDS: HydrALAZINE HCL 20 MG/ML VIAL IVP PRN (05:18)
[2018-01-01] MEDS: MethylPREDNISolone SOD SUCC 125 MG/2 ML VIAL IVP SCH ×4 (05:18→18:00)
[2018-01-01 05:43] LABS: GLUCOMETER DEV NAME(LOC) 5N 2R; GLUCOSE,POINT OF CARE 145 MG/DL (70-110)
[2018-01-01 05:43] LABS: GLUCOMETER DEV NAME(LOC) 5N 2R; GLUCOSE,POINT OF CARE 129 MG/DL (70-110)
[2018-01-01] MEDS: INSULIN ASPART 100 UNITS/ML SQ PRN ×4 (06:30→20:46)
[2018-01-01] MEDS: OXYGEN THERAPY IH SCH ×2 (06:39→19:22)
[2018-01-01] MEDS: PANTOPRAZOLE SODIUM 40 MG DR TABLET PO SCH (07:50)
[2018-01-01] MEDS: HEPARIN SODIUM,PORCINE 5,000 UNITS/ML VIAL SQ SCH ×2 (07:50→20:35)
[2018-01-01] MEDS: CARVEDILOL 6.25 MG TABLET PO SCH ×2 (07:50→20:35)
[2018-01-01] MEDS: ATORVASTATIN CALCIUM 20 MG TABLET PO SCH (07:50)
[2018-01-01] MEDS: HydrALAZINE HCL 25 MG TABLET PO SCH (07:50)
[2018-01-01] MEDS: AmLODIPine BESYLATE 10 MG TABLET PO SCH (07:50)
[2018-01-01] MEDS: VALSARTAN 40 MG TABLET PO SCH (07:50)
[2018-01-01] MEDS: ASPIRIN 325 MG EC TABLET PO SCH (07:51)
[2018-01-01] MEDS: INSULIN DETEMIR 100 UNITS/ML SQ SCH ×2 (07:55→20:45)
[2018-01-01] MEDS: BUMETANIDE 0.25 MG/ML 4 ML VIAL IVP SCH ×2 (09:22→20:38)
[2018-01-01 11:33] LABS: GLUCOMETER DEV NAME(LOC) 5N 2R; GLUCOSE,POINT OF CARE 365 MG/DL (70-110)
[2018-01-01 15:07] LABS: ABG A-A DIFF O2 70.4 mmHg (10-20.0); ABG BASE EXCESS 16.1 mmol/L (-2.0-3.0); ABG CARBOXYHEMOGLOBIN 2.1 % (0.0-1.5); ABG HCO3 37.3 mmol/L (22.0-26.0); ABG METHEMOGLOBIN 0.4 % (0.0-1.5); ABG OXYGEN CONTENT 13.7 mL/dL (15.0-23.0); ABG OXYGEN SATURATION 89.5 % (95.0-98.0); ABG OXYHEMOGLOBIN 87.3 % (94.0-100.0); ABG PCO2 63 mmHg (35-45); ABG PH 7.426 (7.35-7.450); ABG TOTAL HEMOGLOBIN 11.1 G/dL (12.0-18.0); PO2, ARTERIAL BG 55.7 mmHg (79.0-87.0); SOURCE, BLOOD GAS ARTERIAL; TEMPERATURE, FAHRENHEIT, BG 97.2 FAHREN (96.0-98.6)
[2018-01-01 15:10] LABS: SITE, BLOOD GAS RT RADIAL
[2018-01-01 15:15] LABS: O2 DEVICE,BLOOD GAS CANNULA (ROOM AIR)
[2018-01-01] MEDS: HydrALAZINE HCL 50 MG TABLET PO SCH (20:35)
[2018-01-01] MEDS ORDERED: INSULIN DETEMIR 100 UNITS/ML SQ ONE (22:30)
[2018-01-01] MEDS ORDERED: DEXTROSE 50%-WATER 25 GM/50 ML SYRINGE IVP PRN (22:30)
[2018-01-02] VITALS (7 sets, daily range): BP systolic 127–166; BP diastolic 49–87
[2018-01-02] MEDS: ALBUTEROL SULFATE 2.5 MG/0.5 ML NEB SOLUTION NEB SCH ×6 (02:41→23:52)
[2018-01-02] MEDS: IPRATROPIUM BROMIDE 0.5 MG/2.5 ML NEB SOLUTION NEB SCH ×6 (02:41→23:52)
[2018-01-02] MEDS: MethylPREDNISolone SOD SUCC 125 MG/2 ML VIAL IVP SCH ×2 (05:06)
[2018-01-02] MEDS: HydrALAZINE HCL 20 MG/ML VIAL IVP PRN (05:11)
[2018-01-02 06:08] LABS: GLUCOMETER DEV NAME(LOC) 5N 2R; GLUCOSE,POINT OF CARE 460 MG/DL (70-110)
[2018-01-02 06:08] LABS: GLUCOMETER DEV NAME(LOC) 5N 2R; GLUCOSE,POINT OF CARE 396 MG/DL (70-110)
[2018-01-02 07:18] LABS: GLUCOMETER DEV NAME(LOC) PVLAB129; GLUCOSE,POINT OF CARE 323 MG/DL (70-110)
[2018-01-02 07:18] LABS: GLUCOMETER DEV NAME(LOC) PVLAB129; GLUCOSE,POINT OF CARE 331 MG/DL (70-110)
[2018-01-02 07:18] LABS: GLUCOMETER DEV NAME(LOC) PVLAB129; GLUCOSE,POINT OF CARE 300 MG/DL (70-110)
[2018-01-02 07:18] LABS: GLUCOMETER DEV NAME(LOC) PVLAB129; GLUCOSE,POINT OF CARE 299 MG/DL (70-110)
[2018-01-02 07:19] LABS: GLUCOMETER DEV NAME(LOC) PVLAB129; GLUCOSE,POINT OF CARE 389 MG/DL (70-110)
[2018-01-02] MEDS: INSULIN DETEMIR 100 UNITS/ML SQ SCH ×2 (09:00→21:49)
[2018-01-02] MEDS: HEPARIN SODIUM,PORCINE 5,000 UNITS/ML VIAL SQ SCH ×2 (09:00→21:48)
[2018-01-02] MEDS: VALSARTAN 40 MG TABLET PO SCH (10:39)
[2018-01-02] MEDS: ASPIRIN 325 MG EC TABLET PO SCH (10:39)
[2018-01-02] MEDS: HydrALAZINE HCL 50 MG TABLET PO SCH ×2 (10:39→21:48)
[2018-01-02] MEDS: ATORVASTATIN CALCIUM 20 MG TABLET PO SCH (10:39)
[2018-01-02] MEDS: AmLODIPine BESYLATE 10 MG TABLET PO SCH (10:39)
[2018-01-02] MEDS: PANTOPRAZOLE SODIUM 40 MG DR TABLET PO SCH (10:39)
[2018-01-02] MEDS: CARVEDILOL 6.25 MG TABLET PO SCH ×2 (10:40→21:48)
[2018-01-02] MEDS: LABETALOL HCL 5 MG/ML 20 ML VIAL IVP PRN (10:41)
[2018-01-02] MEDS: OXYGEN THERAPY IH SCH ×2 (10:46→20:15)
[2018-01-02] MEDS: BUMETANIDE 0.25 MG/ML 4 ML VIAL IVP SCH ×2 (10:47→21:48)
[2018-01-02 12:08] LABS: GLUCOMETER DEV NAME(LOC) 5N 2R; GLUCOSE,POINT OF CARE 335 MG/DL (70-110)
[2018-01-02] MEDS: INSULIN ASPART 100 UNITS/ML SQ PRN ×3 (12:23→21:53)
[2018-01-03] MEDS: IPRATROPIUM BROMIDE 0.5 MG/2.5 ML NEB SOLUTION NEB SCH ×6 (03:27→23:15)
[2018-01-03] MEDS: ALBUTEROL SULFATE 2.5 MG/0.5 ML NEB SOLUTION NEB SCH ×6 (03:27→23:15)
[2018-01-03 04:00] VITALS: BP_SYST 149; BP_DIAS 84; BP_DIAS 90
[2018-01-03] MEDS: INSULIN ASPART 100 UNITS/ML SQ PRN ×4 (05:54→20:24)
[2018-01-03 07:12] VITALS: BP 155/81
[2018-01-03] MEDS: PredniSONE 20 MG TABLET PO SCH (08:17)
[2018-01-03] MEDS: ATORVASTATIN CALCIUM 20 MG TABLET PO SCH (08:17)
[2018-01-03] MEDS: HydrALAZINE HCL 50 MG TABLET PO SCH ×2 (08:17→20:13)
[2018-01-03] MEDS: PANTOPRAZOLE SODIUM 40 MG DR TABLET PO SCH (08:18)
[2018-01-03] MEDS: AmLODIPine BESYLATE 10 MG TABLET PO SCH (08:18)
[2018-01-03] MEDS: VALSARTAN 40 MG TABLET PO SCH (08:18)
[2018-01-03] MEDS: CARVEDILOL 6.25 MG TABLET PO SCH ×2 (08:19→20:13)
[2018-01-03] MEDS: BUMETANIDE 0.25 MG/ML 4 ML VIAL IVP SCH ×2 (08:20→20:34)
[2018-01-03] MEDS: INSULIN DETEMIR 100 UNITS/ML SQ SCH ×2 (08:20→20:23)
[2018-01-03] MEDS: OXYGEN THERAPY IH SCH ×2 (08:21→19:02)
[2018-01-03] MEDS: ASPIRIN 325 MG EC TABLET PO SCH (08:22)
[2018-01-03] MEDS: HEPARIN SODIUM,PORCINE 5,000 UNITS/ML VIAL SQ SCH ×3 (08:22→20:26)
[2018-01-03 11:07] VITALS: BP 161/88
[2018-01-03 14:57] VITALS: BP 144/51
[2018-01-03 17:43] LABS: GLUCOMETER DEV NAME(LOC) PVLAB129; GLUCOSE,POINT OF CARE 239 MG/DL (70-110)
[2018-01-03 17:43] LABS: GLUCOMETER DEV NAME(LOC) PVLAB129; GLUCOSE,POINT OF CARE 215 MG/DL (70-110)
[2018-01-03 17:48] LABS: GLUCOMETER DEV NAME(LOC) PVLAB129; GLUCOSE,POINT OF CARE 328 MG/DL (70-110)
[2018-01-03 17:48] LABS: GLUCOMETER DEV NAME(LOC) PVLAB129; GLUCOSE,POINT OF CARE 179 MG/DL (70-110)
[2018-01-03 17:48] LABS: GLUCOMETER DEV NAME(LOC) PVLAB129; GLUCOSE,POINT OF CARE 224 MG/DL (70-110)
[2018-01-03 19:47] VITALS: BP 156/87
[2018-01-03 20:48] LABS: GLUCOMETER DEV NAME(LOC) PVLAB129; GLUCOSE,POINT OF CARE 362 MG/DL (70-110)
[2018-01-04] VITALS (8 sets, daily range): BP systolic 105–170; BP diastolic 65–93
[2018-01-04] MEDS: IPRATROPIUM BROMIDE 0.5 MG/2.5 ML NEB SOLUTION NEB SCH ×6 (03:25→23:03)
[2018-01-04] MEDS: ALBUTEROL SULFATE 2.5 MG/0.5 ML NEB SOLUTION NEB SCH ×6 (03:25→23:04)
[2018-01-04] MEDS: INSULIN ASPART 100 UNITS/ML SQ PRN ×4 (06:18→20:28)
[2018-01-04 06:48] LABS: GLUCOMETER DEV NAME(LOC) PVLAB129; GLUCOSE,POINT OF CARE 266 MG/DL (70-110)
[2018-01-04 06:58] LABS: BASOPHILS % (AUTO) 0.2 % (0.0-2.0); EOSINOPHILS % (AUTO) 0.2 % (1.0-6.0); HEMATOCRIT 31.4 % (36-46); HEMOGLOBIN 9.8 g/dL (12.0-16.0); LYMPHOCYTES # (AUTO) 0.7 K/uL (1.0-4.8); LYMPHOCYTES % (AUTO) 9.4 % (22.0-44.0); MEAN CORPUSCULAR HEMOGLOBIN 23.1 pg (26.0-34.0); MEAN CORPUSCULAR HGB CONC 31.1 G/dL (31.0-37.0); MEAN CORPUSCULAR VOLUME 74 fL (80-100); MONOCYTES # (AUTO) 0.7 K/uL (0.1-1.0); MONOCYTES % (AUTO) 9.7 % (2.0-9.0); NEUTROPHILS # (AUTO) 6.1 K/uL (1.8-7.7); NEUTROPHILS % (AUTO) 80.5 % (40.0-70.0); PLATELET COUNT (AUTO) 244 K/uL (150-450); RED BLOOD CELL COUNT(AUTO) 4.22 MIL/uL (4.00-5.20); RED CELL DISTRIBUTION WIDTH 24.9 % (11.5-14.5)
[2018-01-04 07:50] LABS: ALANINE AMINOTRANSFERASE 44 U/L (12-78); ALBUMIN 2.1 g/dL (3.4-5.0); ALKALINE PHOSPHATASE 362 U/L (46-116); ASPARTATE AMINOTRANSFERASE 29 U/L (15-37); BILIRUBIN,TOTAL 0.5 mg/dL (0.1-1.0); CALCIUM, TOTAL 8.1 mg/dL (8.8-10.5); CHLORIDE 101 mmol/L (98-107); CREATININE 0.84 mg/dL (0.60-1.30); GLOMERULAR FILTR. RATE CALC > 60 mL/min (>60); GLUCOSE,RANDOM 273 mg/dL (70-110); POTASSIUM 4.1 mmol/L (3.5-5.1); SODIUM SERUM 143 mmol/L (136-145); TOTAL PROTEIN, SERUM 6.1 g/dL (6.4-8.2); UREA NITROGEN, BLOOD 24 mg/dL (7-18)
[2018-01-04 07:57] LABS: ANION GAP 1 mmol/L (8-16)
[2018-01-04 08:06] LABS: CARBON DIOXIDE 41 mmol/L (22-29)
[2018-01-04] MEDS: OXYGEN THERAPY IH SCH ×2 (08:44→20:48)
[2018-01-04] MEDS: HydrALAZINE HCL 50 MG TABLET PO SCH ×2 (08:45→20:23)
[2018-01-04] MEDS: HEPARIN SODIUM,PORCINE 5,000 UNITS/ML VIAL SQ SCH ×2 (08:45→20:29)
[2018-01-04] MEDS: AmLODIPine BESYLATE 10 MG TABLET PO SCH (08:46)
[2018-01-04] MEDS: ATORVASTATIN CALCIUM 20 MG TABLET PO SCH (08:46)
[2018-01-04] MEDS: CARVEDILOL 6.25 MG TABLET PO SCH ×2 (08:46→20:23)
[2018-01-04] MEDS: PANTOPRAZOLE SODIUM 40 MG DR TABLET PO SCH (08:47)
[2018-01-04] MEDS: PredniSONE 20 MG TABLET PO SCH (08:56)
[2018-01-04] MEDS: BUMETANIDE 0.25 MG/ML 4 ML VIAL IVP SCH ×2 (08:59→20:44)
[2018-01-04] MEDS: VALSARTAN 40 MG TABLET PO SCH (08:59)
[2018-01-04] MEDS: INSULIN DETEMIR 100 UNITS/ML SQ SCH ×2 (09:03→20:28)
[2018-01-04] MEDS: ASPIRIN 325 MG EC TABLET PO SCH (09:25)
[2018-01-04] MEDS: HydrALAZINE HCL 20 MG/ML VIAL IVP PRN (23:25)
[2018-01-05] VITALS (7 sets, daily range): BP systolic 131–163; BP diastolic 61–94
[2018-01-05] MEDS: IPRATROPIUM BROMIDE 0.5 MG/2.5 ML NEB SOLUTION NEB SCH ×6 (02:49→22:45)
[2018-01-05] MEDS: ALBUTEROL SULFATE 2.5 MG/0.5 ML NEB SOLUTION NEB SCH ×6 (02:49→22:45)
[2018-01-05] MEDS: ACETAMINOPHEN 325 MG TABLET PO PRN (05:11)
[2018-01-05] MEDS: INSULIN ASPART 100 UNITS/ML SQ PRN ×4 (05:50→22:07)
[2018-01-05] MEDS: OXYGEN THERAPY IH SCH (06:52)
[2018-01-05] MEDS: INSULIN DETEMIR 100 UNITS/ML SQ SCH ×2 (08:18→22:08)
[2018-01-05] MEDS: BUMETANIDE 0.25 MG/ML 4 ML VIAL IVP SCH ×2 (08:19→22:06)
[2018-01-05] MEDS: PANTOPRAZOLE SODIUM 40 MG DR TABLET PO SCH (08:20)
[2018-01-05] MEDS: VALSARTAN 40 MG TABLET PO SCH (08:20)
[2018-01-05] MEDS: ASPIRIN 325 MG EC TABLET PO SCH (08:20)
[2018-01-05] MEDS: HydrALAZINE HCL 50 MG TABLET PO SCH (08:20)
[2018-01-05] MEDS: AmLODIPine BESYLATE 10 MG TABLET PO SCH (08:21)
[2018-01-05] MEDS: CARVEDILOL 6.25 MG TABLET PO SCH ×2 (08:21→22:06)
[2018-01-05] MEDS: ATORVASTATIN CALCIUM 20 MG TABLET PO SCH (08:21)
[2018-01-05] MEDS: PredniSONE 20 MG TABLET PO SCH (08:21)
[2018-01-05] MEDS: HEPARIN SODIUM,PORCINE 5,000 UNITS/ML VIAL SQ SCH ×2 (08:23→22:06)
[2018-01-05] MEDS: HydrALAZINE HCL 20 MG/ML VIAL IVP PRN (15:35)
[2018-01-05 20:38] LABS: GLUCOMETER DEV NAME(LOC) 5S 2N; GLUCOSE,POINT OF CARE 221 MG/DL (70-110)
[2018-01-05 20:38] LABS: GLUCOMETER DEV NAME(LOC) 5S 2N; GLUCOSE,POINT OF CARE 193 MG/DL (70-110)
[2018-01-05 20:38] LABS: GLUCOMETER DEV NAME(LOC) 5S 2N; GLUCOSE,POINT OF CARE 273 MG/DL (70-110)
[2018-01-06] VITALS (7 sets, daily range): BP systolic 134–167; BP diastolic 73–95
[2018-01-06] MEDS: HydrALAZINE HCL 50 MG TABLET PO SCH ×3 (00:38→20:47)
[2018-01-06 01:38] LABS: GLUCOMETER DEV NAME(LOC) 5S 2N; GLUCOSE,POINT OF CARE 309 MG/DL (70-110)
[2018-01-06] MEDS: ALBUTEROL SULFATE 2.5 MG/0.5 ML NEB SOLUTION NEB SCH ×6 (02:31→23:06)
[2018-01-06] MEDS: IPRATROPIUM BROMIDE 0.5 MG/2.5 ML NEB SOLUTION NEB SCH ×6 (02:31→23:06)
[2018-01-06] MEDS: INSULIN ASPART 100 UNITS/ML SQ PRN ×4 (06:21→20:50)
[2018-01-06 07:39] LABS: BASOPHILS % (AUTO) 0.2 % (0.0-2.0); EOSINOPHILS % (AUTO) 0.3 % (1.0-6.0); HEMATOCRIT 32.4 % (36-46); HEMOGLOBIN 10.4 g/dL (12.0-16.0); LYMPHOCYTES # (AUTO) 1.2 K/uL (1.0-4.8); LYMPHOCYTES % (AUTO) 13.9 % (22.0-44.0); MEAN CORPUSCULAR HEMOGLOBIN 23.5 pg (26.0-34.0); MEAN CORPUSCULAR HGB CONC 31.9 G/dL (31.0-37.0); MEAN CORPUSCULAR VOLUME 74 fL (80-100); MONOCYTES # (AUTO) 0.8 K/uL (0.1-1.0); MONOCYTES % (AUTO) 8.6 % (2.0-9.0); NEUTROPHILS # (AUTO) 6.9 K/uL (1.8-7.7); PLATELET COUNT (AUTO) 235 K/uL (150-450); RED CELL DISTRIBUTION WIDTH 25.4 % (11.5-14.5)
[2018-01-06 07:58] LABS: ALANINE AMINOTRANSFERASE 43 U/L (12-78); ALBUMIN 2.2 g/dL (3.4-5.0); ALKALINE PHOSPHATASE 319 U/L (46-116); ANION GAP 0 mmol/L (8-16); ASPARTATE AMINOTRANSFERASE 25 U/L (15-37); BILIRUBIN,TOTAL 0.5 mg/dL (0.1-1.0); CALCIUM, TOTAL 8.4 mg/dL (8.8-10.5); CHLORIDE 100 mmol/L (98-107); CREATININE 0.71 mg/dL (0.60-1.30); GLOMERULAR FILTR. RATE CALC > 60 mL/min (>60); GLUCOSE,RANDOM 194 mg/dL (70-110); POTASSIUM 3.6 mmol/L (3.5-5.1); SODIUM SERUM 143 mmol/L (136-145); TOTAL PROTEIN, SERUM 6.2 g/dL (6.4-8.2); UREA NITROGEN, BLOOD 21 mg/dL (7-18)
[2018-01-06 08:01] LABS: CARBON DIOXIDE 43 mmol/L (22-29)
[2018-01-06] MEDS: AmLODIPine BESYLATE 10 MG TABLET PO SCH (08:31)
[2018-01-06] MEDS: PredniSONE 20 MG TABLET PO SCH (08:31)
[2018-01-06] MEDS: ASPIRIN 325 MG EC TABLET PO SCH (08:31)
[2018-01-06] MEDS: ATORVASTATIN CALCIUM 20 MG TABLET PO SCH (08:31)
[2018-01-06] MEDS: CARVEDILOL 6.25 MG TABLET PO SCH ×2 (08:31→20:47)
[2018-01-06] MEDS: VALSARTAN 40 MG TABLET PO SCH (08:32)
[2018-01-06] MEDS: PANTOPRAZOLE SODIUM 40 MG DR TABLET PO SCH (08:32)
[2018-01-06] MEDS: HEPARIN SODIUM,PORCINE 5,000 UNITS/ML VIAL SQ SCH ×2 (08:36→16:00)
[2018-01-06] MEDS: BUMETANIDE 0.25 MG/ML 4 ML VIAL IVP SCH ×2 (09:26→21:53)
[2018-01-06] MEDS: INSULIN DETEMIR 100 UNITS/ML SQ SCH ×2 (09:28→20:48)
[2018-01-06 12:13] LABS: GLUCOMETER DEV NAME(LOC) 5S 2N; GLUCOSE,POINT OF CARE 243 MG/DL (70-110)
[2018-01-06 12:13] LABS: GLUCOMETER DEV NAME(LOC) 5S 2N; GLUCOSE,POINT OF CARE 185 MG/DL (70-110)
[2018-01-07] MEDS: HEPARIN SODIUM,PORCINE 5,000 UNITS/ML VIAL SQ SCH ×3 (00:20→15:33)
[2018-01-07] MEDS: ALBUTEROL SULFATE 2.5 MG/0.5 ML NEB SOLUTION NEB SCH ×4 (02:59→17:59)
[2018-01-07] MEDS: IPRATROPIUM BROMIDE 0.5 MG/2.5 ML NEB SOLUTION NEB SCH ×4 (02:59→17:58)
[2018-01-07 04:37] VITALS: BP 159/89
[2018-01-07] MEDS: INSULIN ASPART 100 UNITS/ML SQ PRN ×3 (06:12→17:44)
[2018-01-07 06:36] LABS: GLUCOMETER DEV NAME(LOC) 5S 2N; GLUCOSE,POINT OF CARE 181 MG/DL (70-110)
[2018-01-07 06:36] LABS: GLUCOMETER DEV NAME(LOC) 5S 2N; GLUCOSE,POINT OF CARE 265 MG/DL (70-110)
[2018-01-07 06:36] LABS: GLUCOMETER DEV NAME(LOC) 5S 2N; GLUCOSE,POINT OF CARE 270 MG/DL (70-110)
[2018-01-07 07:35] VITALS: BP 140/80
[2018-01-07] MEDS: HydrALAZINE HCL 50 MG TABLET PO SCH (09:04)
[2018-01-07] MEDS: VALSARTAN 40 MG TABLET PO SCH (09:04)
[2018-01-07] MEDS: ASPIRIN 325 MG EC TABLET PO SCH (09:04)
[2018-01-07] MEDS: CARVEDILOL 6.25 MG TABLET PO SCH (09:04)
[2018-01-07] MEDS: PredniSONE 20 MG TABLET PO SCH (09:04)
[2018-01-07] MEDS: PANTOPRAZOLE SODIUM 40 MG DR TABLET PO SCH (09:05)
[2018-01-07] MEDS: AmLODIPine BESYLATE 10 MG TABLET PO SCH (09:05)
[2018-01-07] MEDS: ATORVASTATIN CALCIUM 20 MG TABLET PO SCH (09:05)
[2018-01-07] MEDS: INSULIN DETEMIR 100 UNITS/ML SQ SCH (09:08)
[2018-01-07] MEDS: BUMETANIDE 0.25 MG/ML 4 ML VIAL IVP SCH (09:27)
[2018-01-07] MEDS ORDERED: HEPA500018 SQ (11:35)
[2018-01-07] MEDS ORDERED: AUD NEB ×2 (11:35→11:38)
[2018-01-07] MEDS ORDERED: HYDR-2924 PO (11:36)
[2018-01-07] MEDS ORDERED: INSU100V12 SQ ×2 (11:36)
[2018-01-07] MEDS ORDERED: PANT40TA25 PO (11:37)
[2018-01-07] MEDS ORDERED: IPRNEB IH ×2 (11:37→11:39)
[2018-01-07] MEDS ORDERED: PRED20 PO (11:37)
[2018-01-07] MEDS ORDERED: VALS40TA4 PO (11:38)
[2018-01-07] MEDS ORDERED: ACET-2247 PO (11:38)
[2018-01-07] MEDS ORDERED: MOM30 PO (11:40)
[2018-01-07] MEDS ORDERED: LORA1TAB3 PO (11:40)
[2018-01-07 11:48] VITALS: BP 137/75
[2018-01-07] MEDS ORDERED: BISA10S PR (12:45)
[2018-01-07 15:28] VITALS: BP 149/79
[2018-01-08 20:38] LABS: GLUCOMETER DEV NAME(LOC) 5S 2N; GLUCOSE,POINT OF CARE 173 MG/DL (70-110)
[2018-01-08 20:38] LABS: GLUCOMETER DEV NAME(LOC) 5S 2N; GLUCOSE,POINT OF CARE 290 MG/DL (70-110)
[2018-01-09 15:33] LABS: GLUCOMETER DEV NAME(LOC) 5N 2R; GLUCOSE,POINT OF CARE 277 MG/DL (70-110)
[2018-01-09 15:33] LABS: GLUCOMETER DEV NAME(LOC) 5N 2R; GLUCOSE,POINT OF CARE 223 MG/DL (70-110)
[2018-01-09 15:34] LABS: GLUCOMETER DEV NAME(LOC) 5N 2R; GLUCOSE,POINT OF CARE 358 MG/DL (70-110)
== END 2018-01-07 18:35 | DRG 291 ==
LOC: EMS 17:39 → 5S 19:30 → ICU 12-27 11:15 → 5N 12-29 22:15
PROVIDERS: ADMIT Internal Medicine; ATTEND Internal Medicine
PROC: 5A09357 Assistance with Respiratory Ventilation, Less than 24 Consecutive Hours, Continuous Positive Airway Pressure (ICD-10-PCS; principal; 2017-12-24)
PROC: 5A09557 Assistance with Respiratory Ventilation, Greater than 96 Consecutive Hours, Continuous Positive Airway Pressure (ICD-10-PCS; 2017-12-27)
DX: I11.0 Hypertensive heart disease with heart failure (principal); G93.41 Metabolic encephalopathy; J96.21 Acute and chronic respiratory failure with hypoxia; E87.2 Acidosis; J96.22 Acute and chronic respiratory failure with hypercapnia; E66.2 Morbid (severe) obesity with alveolar hypoventilation; Z68.43 Body mass index [BMI] 50.0-59.9, adult; J44.1 Chronic obstructive pulmonary disease with (acute) exacerbation; E11.65 Type 2 diabetes mellitus with hyperglycemia; I48.91 Unspecified atrial fibrillation; J84.10 Pulmonary fibrosis, unspecified; I50.31 Acute diastolic (congestive) heart failure; E78.5 Hyperlipidemia, unspecified; Z88.5 Allergy status to narcotic agent; Z88.2 Allergy status to sulfonamides; Z88.8 Allergy status to other drugs, medicaments and biological substances; Z90.10 Acquired absence of unspecified breast and nipple; Z85.3 Personal history of malignant neoplasm of breast; Z79.4 Long term (current) use of insulin; Z86.73 Personal history of transient ischemic attack (TIA), and cerebral infarction without residual deficits
CPT/HCPCS: 71250; 74018; 76700; 82248; 82805; 82962; 83036; 83615; 83735; 84100; 87081; 87086; 93005; 93306; 94640; 94660; 96374; 96375; 97162; 97166; 97530; 97535; 99291; J0360; J1644; J2930; J3490

== ENCOUNTER 2018-01-14 16:35 | Inpatient (IN) | payer MEDICARE, MEDICAID ==
[~2018-01-14] VITALS: Ht 154.9 cm; Wt 136.8 kg
[~2018-01-14 16:35] MED LIST changes: +ACET-2247 PO; -ASPI-556 PO; +ASPI-891 PO; +AUD NEB; +BISA10S PR; +HEPA500018 SQ; +HYDR-2924 PO; -HYDR25TA84 PO; -INSLAN SQ; +INSU100V12 SQ; +IPRNEB IH; +LORA1TAB3 PO; +MOM30 PO; +PANT40TA25 PO; +PRED20 PO
[2018-01-14] MEDS ORDERED: ASPIRIN 81 MG CHEWABLE TABLET PO ONE (18:00)
[2018-01-14] MEDS ORDERED: NITROGLYCERIN 2% (1 GM=INCH) PACKET TP ONE (18:00)
[2018-01-14 18:20] LABS: BASOPHILS % (AUTO) 0.3 % (0.0-2.0); EOSINOPHILS % (AUTO) 0.1 % (1.0-6.0); HEMATOCRIT 33.7 % (36-46); HEMOGLOBIN 10.3 g/dL (12.0-16.0); LYMPHOCYTES # (AUTO) 0.8 K/uL (1.0-4.8); LYMPHOCYTES % (AUTO) 8.4 % (22.0-44.0); MEAN CORPUSCULAR HEMOGLOBIN 23.2 pg (26.0-34.0); MEAN CORPUSCULAR HGB CONC 30.7 G/dL (31.0-37.0); MEAN CORPUSCULAR VOLUME 76 fL (80-100); MONOCYTES # (AUTO) 0.2 K/uL (0.1-1.0); MONOCYTES % (AUTO) 1.9 % (2.0-9.0); NEUTROPHILS # (AUTO) 8.7 K/uL (1.8-7.7); PLATELET COUNT (AUTO) 225 K/uL (150-450); RED BLOOD CELL COUNT(AUTO) 4.45 MIL/uL (4.00-5.20); RED CELL DISTRIBUTION WIDTH 27.9 % (11.5-14.5)
[2018-01-14 18:21] LABS: NEUTROPHILS % (AUTO) 89.3 % (40.0-70.0)
[2018-01-14 18:26] LABS: INR 1.1 (0.9-1.1); PROTHROMBIN TIME 11.5 SEC (9.4-11.6)
[2018-01-14 18:38] LABS: B-TYPE NATRIURETIC PEPTIDE 630 pg/mL (0-100)
[2018-01-14 18:48] LABS: ANION GAP 3 mmol/L (8-16); CALCIUM, TOTAL 8.8 mg/dL (8.8-10.5); CARBON DIOXIDE 39 mmol/L (22-29); CHLORIDE 98 mmol/L (98-107); CREATININE 0.92 mg/dL (0.60-1.30); GLOMERULAR FILTR. RATE CALC > 60 mL/min (>60); GLUCOSE,RANDOM 382 mg/dL (70-110); POTASSIUM 4.4 mmol/L (3.5-5.1); SODIUM SERUM 140 mmol/L (136-145); UREA NITROGEN, BLOOD 20 mg/dL (7-18)
[2018-01-14 18:54] LABS: ALANINE AMINOTRANSFERASE 57 U/L (12-78); ALBUMIN 2.8 g/dL (3.4-5.0); ALKALINE PHOSPHATASE 429 U/L (46-116); ASPARTATE AMINOTRANSFERASE 27 U/L (15-37); CREATINE KINASE, TOTAL 60 U/L (26-192); TOTAL PROTEIN, SERUM 7.3 g/dL (6.4-8.2)
[2018-01-14] MEDS ORDERED: MethylPREDNISolone SOD SUCC 125 MG/2 ML VIAL IVP ONE (19:00)
[2018-01-14] MEDS ORDERED: FUROSEMIDE 40 MG/4 ML VIAL IVP ONE (19:00)
[2018-01-14 19:15] LABS: ABG A-A DIFF O2 145.2 mmHg (10-20.0); ABG BASE EXCESS 10.8 mmol/L (-2.0-3.0); ABG CARBOXYHEMOGLOBIN 1.7 % (0.0-1.5); ABG HCO3 33.3 mmol/L (22.0-26.0); ABG METHEMOGLOBIN 0.2 % (0.0-1.5); ABG OXYGEN CONTENT 14.1 mL/dL (15.0-23.0); ABG OXYGEN SATURATION 96.8 % (95.0-98.0); ABG PCO2 48 mmHg (35-45); ABG PH 7.473 (7.35-7.450); ABG TOTAL HEMOGLOBIN 10.5 G/dL (12.0-18.0); PO2, ARTERIAL BG 84.8 mmHg (79.0-87.0); SOURCE, BLOOD GAS ARTERIAL; TEMPERATURE, FAHRENHEIT, BG 98.6 FAHREN (96.0-98.6)
[2018-01-14 19:16] LABS: SITE, BLOOD GAS RT RADIAL
[2018-01-14] MEDS ORDERED: ALBUTEROL SULFATE 5 MG/ML 20 ML NEB SOLN [BULK] NEB ONE (19:30)
[2018-01-14] MEDS ORDERED: IPRATROPIUM BROMIDE 0.5 MG/2.5 ML NEB SOLUTION NEB ONE (19:30)
[2018-01-14] MEDS ORDERED: 0.9% SODIUM CHLORIDE 5 ML NEB SOLUTION NEB ONE (19:32)
[2018-01-14] MEDS ORDERED: 0.9% SODIUM CHLORIDE 10 ML SYRINGE IVP PRN (20:45)
[2018-01-14] MEDS ORDERED: ACETAMINOPHEN 325 MG TABLET PO PRN ×2 (20:45→21:15)
[2018-01-14] MEDS ORDERED: BISACODYL 10 MG RECTAL RECTAL SUPPOSITORY PR PRN (21:15)
[2018-01-14] MEDS ORDERED: IPRATROPIUM BROMIDE 0.5 MG/2.5 ML NEB SOLUTION NEB PRN (21:15)
[2018-01-14] MEDS ORDERED: MAGNESIUM HYDROXIDE SUSPENSION 30 ML UDCUP PO PRN (21:15)
[2018-01-14] MEDS ORDERED: ALBUTEROL SULFATE 2.5 MG/0.5 ML NEB SOLUTION NEB PRN (21:15)
[2018-01-14 21:28] LABS: APPEARANCE,URINE CLOUDY (CLEAR); BILIRUBIN,URINE NEGATIVE (NEGATIVE); GLUCOSE, URINE (UA) >=1000 mg/dL (NEGATIVE); KETONES,URINE TRACE mg/dL (NEGATIVE); LEUKOCYTE ESTERASE ,URINE NEGATIVE (NEGATIVE); NITRATE,URINE NEGATIVE (NEGATIVE); OCCULT BLOOD,URINE SMALL (NEGATIVE); PROTEIN,URINE SEE CONFIRM (NEGATIVE)
[2018-01-14] MEDS ORDERED: DEXTROSE 50%-WATER 25 GM/50 ML SYRINGE IVP PRN (21:30)
[2018-01-14 21:51] LABS: SULFOSALICYLIC ACID,URINE 2+ (Negative); WBC,URINE None Seen /HPF (0-5)
[2018-01-14 21:52] LABS: BACTERIA,URINE Many /HPF (None Seen); SQUAMOUS EPITHELIAL CELL,UR Rare /LPF (None Seen)
[2018-01-14 21:53] LABS: GLUCOSE,POINT OF CARE 339 MG/DL (70-110)
[2018-01-14] MEDS: HydrALAZINE HCL 50 MG TABLET PO SCH (22:26)
[2018-01-14] MEDS: INSULIN DETEMIR 100 UNITS/ML SQ SCH (22:26)
[2018-01-15] MEDS: HEPARIN SODIUM,PORCINE 5,000 UNITS/ML VIAL SQ SCH ×3 (01:02→15:48)
[2018-01-15] MEDS: MethylPREDNISolone SOD SUCC 125 MG/2 ML VIAL IVP SCH ×3 (05:02→11:30)
[2018-01-15 07:48] LABS: GLUCOSE,POINT OF CARE 216 MG/DL (70-110)
[2018-01-15 08:43] LABS: BASOPHILS % (AUTO) 1.1 % (0.0-2.0); EOSINOPHILS % (AUTO) 0.8 % (1.0-6.0); HEMATOCRIT 29.9 % (36-46); HEMOGLOBIN 9.3 g/dL (12.0-16.0); LYMPHOCYTES # (AUTO) 1.3 K/uL (1.0-4.8); LYMPHOCYTES % (AUTO) 18.4 % (22.0-44.0); MEAN CORPUSCULAR HEMOGLOBIN 23.4 pg (26.0-34.0); MEAN CORPUSCULAR HGB CONC 31.3 G/dL (31.0-37.0); MEAN CORPUSCULAR VOLUME 75 fL (80-100); MONOCYTES # (AUTO) 0.6 K/uL (0.1-1.0); MONOCYTES % (AUTO) 8.9 % (2.0-9.0); NEUTROPHILS # (AUTO) 5.1 K/uL (1.8-7.7); NEUTROPHILS % (AUTO) 70.8 % (40.0-70.0); PLATELET COUNT (AUTO) 220 K/uL (150-450); RED BLOOD CELL COUNT(AUTO) 3.99 MIL/uL (4.00-5.20); RED CELL DISTRIBUTION WIDTH 28.2 % (11.5-14.5)
[2018-01-15] MEDS ORDERED: ASPIRIN 81 MG CHEWABLE TABLET PO SCH (09:00)
[2018-01-15] MEDS ORDERED: DOCUSATE SODIUM 100 MG CAPSULE PO SCH (09:00)
[2018-01-15] MEDS ORDERED: PANTOPRAZOLE SODIUM 40 MG DR TABLET PO SCH (09:00)
[2018-01-15] MEDS ORDERED: FUROSEMIDE 20 MG/2 ML VIAL IVP SCH (09:00)
[2018-01-15 09:15] VITALS: BP 124/92
[2018-01-15 09:17] LABS: ALANINE AMINOTRANSFERASE 47 U/L (12-78); ALBUMIN 2.3 g/dL (3.4-5.0); ALKALINE PHOSPHATASE 349 U/L (46-116); ANION GAP 3 mmol/L (8-16); ASPARTATE AMINOTRANSFERASE 17 U/L (15-37); BILIRUBIN,TOTAL 0.6 mg/dL (0.1-1.0); CALCIUM, TOTAL 8.6 mg/dL (8.8-10.5); CARBON DIOXIDE 39 mmol/L (22-29); CHLORIDE 100 mmol/L (98-107); GLOMERULAR FILTR. RATE CALC > 60 mL/min (>60); GLUCOSE,RANDOM 233 mg/dL (70-110); POTASSIUM 3.9 mmol/L (3.5-5.1); SODIUM SERUM 142 mmol/L (136-145); TOTAL PROTEIN, SERUM 6.3 g/dL (6.4-8.2); UREA NITROGEN, BLOOD 18 mg/dL (7-18)
[2018-01-15] MEDS: HydrALAZINE HCL 50 MG TABLET PO SCH (09:32)
[2018-01-15] MEDS: INSULIN DETEMIR 100 UNITS/ML SQ SCH (09:40)
[2018-01-15 10:57] VITALS: BP 146/83
[2018-01-15] MEDS: INSULIN ASPART 100 UNITS/ML SQ PRN ×2 (12:41→18:00)
[2018-01-15 15:11] VITALS: BP 158/87
[2018-01-15] MEDS ORDERED: MethylPREDNISolone SOD SUCC 125 MG/2 ML VIAL IVP SCH (18:00)
[2018-01-15 18:58] LABS: GLUCOMETER DEV NAME(LOC) 5N 1N; GLUCOSE,POINT OF CARE 227 MG/DL (70-110)
[2018-01-15 18:58] LABS: GLUCOMETER DEV NAME(LOC) 5S 1M; GLUCOSE,POINT OF CARE 260 MG/DL (70-110)
[2018-01-15] MEDS ORDERED: ATORVASTATIN CALCIUM 20 MG TABLET PO SCH (21:00)
== END 2018-01-15 18:50 | DRG 189 ==
LOC: EMS 16:37 → 5S 01-15 06:16
PROVIDERS: ADMIT Internal Medicine; ATTEND Internal Medicine
PROC: 5A09357 Assistance with Respiratory Ventilation, Less than 24 Consecutive Hours, Continuous Positive Airway Pressure (ICD-10-PCS; principal; 2018-01-15)
DX: J96.21 Acute and chronic respiratory failure with hypoxia (principal); G93.41 Metabolic encephalopathy; I27.20 Pulmonary hypertension, unspecified; E66.2 Morbid (severe) obesity with alveolar hypoventilation; Z68.43 Body mass index [BMI] 50.0-59.9, adult; E11.65 Type 2 diabetes mellitus with hyperglycemia; I11.0 Hypertensive heart disease with heart failure; I50.9 Heart failure, unspecified; J44.1 Chronic obstructive pulmonary disease with (acute) exacerbation; J96.22 Acute and chronic respiratory failure with hypercapnia; Z82.49 Family history of ischemic heart disease and other diseases of the circulatory system; Z85.3 Personal history of malignant neoplasm of breast; Z86.73 Personal history of transient ischemic attack (TIA), and cerebral infarction without residual deficits; Z90.13 Acquired absence of bilateral breasts and nipples; Z88.5 Allergy status to narcotic agent; Z88.2 Allergy status to sulfonamides; Z88.8 Allergy status to other drugs, medicaments and biological substances; Z79.899 Other long term (current) drug therapy; Z79.82 Long term (current) use of aspirin; Z79.4 Long term (current) use of insulin
CPT/HCPCS: 82805; 82962; 87086; 93005; 94644; 94660; 96374; 97161; 99291; J1644; J1940; J2930